=== PATIENT | female | born 1970 | race Caucasian/White ===

== ENCOUNTER 2018-08-18 10:12 | Emergency (ER) | payer OTHER ==
[~2018-08-18] VITALS: Ht 170.2 cm; Wt 59.0 kg
--- OUTSIDE RECORDS SUMMARY | 2018-08-18 10:14 | XMS REPORT | Clinical Summary ---
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 Pseudoephedrine Other (See 01/23/2018 Comments) Medications End Date Status Medication Sig Dispensed Refills Start Date 02/22/2018 hydroCHLOROthiazide Take 1 tablet 30 tablet 0 (HYDRODIURIL) 25 MG (25 mg total) 8 tablet by mouth daily for 30 days. 02/22/2018 hydroCHLOROthiazide Take 1 tablet 30 tablet 0 (HYDRODIURIL) 25 MG (25 mg total) 8 tablet by mouth daily for 30 days. Active Problems Not on file Encounters Care Team Description Date Type Specialty Pankaj Cote MD Dizziness (Primary Dx); Essential hypertension; Blurry vision, left eye 01/23/2018 Emergency Emergency Medicine after 08/17/2017 Social History Date Tobacco Use Types Packs/Day Years Used Quit: 2010 Former Smoker 15 Smokeless Tobacco: Never Used Alcohol Use Drinks/Week oz/Week Comments Yes 2 Glasses of 1.2 drinks 3 times a week wine Sex Assigned at Date Recorded Not on file Industry Job Start Date Occupation Not on file Not on file Not on file Travel End Travel History Travel Start No recent travel history available. Last Filed Vital Signs Time Taken Vital Sign Reading 01/23/2018 8:37 PM CDT Blood Pressure 144/87 01/23/2018 8:37 PM CDT Pulse 81 01/23/2018 8:37 PM CDT Temperature 36.7 C (98 F) 01/23/2018 8:37 PM CDT Respiratory Rate 18 01/23/2018 8:37 PM CDT Oxygen Saturation 97% - Inhaled Oxygen - Concentration 01/23/2018 2:58 PM CDT Weight 65.6 kg (144 lb 11.2 oz) 01/23/2018 2:58 PM CDT Height 172.7 cm (5' 8") 01/23/2018 2:58 PM CDT Body Mass Index 22 Plan of Treatment Health Maintenance Due Date Last Done Comments MMR VACCINES (1 of - 1973 Standard series) VARICELLA VACCINES (1 of 1985 2 - 2-dose adolescent series) CERVICAL CANCER SCREENING 1993 INFLUENZA VACCINE 04/18/2018 HEPATITIS B VACCINES Aged Out No longer eligible based on patient's age to complete this topic IPV VACCINES Aged Out No longer eligible based on patient's age to complete this topic MENINGOCOCCAL VACCINE Aged Out No longer eligible based on patient's age to complete this topic Procedures Comments Procedure Name Priority Date/Time Associated Diagnosis ECG ED PRELIMINARY Routine 01/23/2018 INTERPRETATION 6:28 PM CDT GENERAL Routine 01/23/2018 6:28 PM CDT URINALYSIS SCREEN AND STAT 01/23/2018 MICROSCOPY, WITH REFLEX 6:06 PM CDT TO CULTURE HCG QUALITATIVE, URINE STAT 01/23/2018 SCREEN 6:06 PM CDT GRAM STAIN STAT 01/23/2018 6:06 PM CDT URINE CULTURE STAT 01/23/2018 6:06 PM CDT MRI BRAIN WO CONTRAST STAT 01/23/2018 5:[address] HEAD WO CONTRAST STAT 01/23/2018 3:42 PM CDT ZZESTIMATED GFR STAT 01/23/2018 3:30 PM CDT B NATRIURETIC PEPTIDE STAT 01/23/2018 3:30 PM CDT TROPONIN STAT 01/23/2018 3:30 PM CDT COMPREHENSIVE METABOLIC STAT 01/23/2018 PANEL 3:30 PM CDT HC COMPLETE BLD COUNT STAT 01/23/2018 W/AUTO DIFF 3:30 PM CDT ECG 12-LEAD STAT 01/23/2018 3:07 PM CDT after 08/17/2017 Results * ECG ED Preliminary Interpretation - NOT AN ORDER (01/23/2018 6:28 PM CDT) Narrative Performed At Pankaj Cote MD 01/23/2018 11:29 PM ECG ED Preliminary Interpretation - Not an Order Performed by: PANKAJ COTE Authorized by: PANKAJ COTE ECG reviewed by ED Physician in the absence of a customer solutions supervisor: yes Interpretation: Interpretation: normal Rate: ECG rate:79 ECG rate assessment: normal Rhythm: Rhythm: sinus rhythm Ectopy: Ectopy: none QRS: QRS axis:Normal QRS intervals:Normal Conduction: Conduction: normal ST segments: ST segments:Normal T waves: T waves: normal * GENERAL (01/23/2018 6:28 PM CDT) Narrative Performed At Pankaj Cote MD 01/23/2018 11:29 PM Left Eye Ultrasound Performed by: PANKAJ COTE Authorized by: PANKAJ COTE Consent: Consent obtained:Verbal Consent given by:Patient Alternatives discussed:No treatment Indications: Indications:Blurry vision Anesthesia (see MAR for exact dosages): Anesthesia method:None Post-procedure details: Patient tolerance of procedure:Tolerated well, no immediate complications Comments: Ultrasound of the left eye noted to be normal with no retinal detachment or vitreous hemorrhage. * Urinalysis screen and microscopy, with reflex to culture (01/23/2018 6:06 PM CDT) Specimen site Clean catch [facility] AND [facility]OMIC MEDICINE Color, UA Straw [facility] AND GENOMIC MEDICINE Appearance, UA Slightly-Cloudy [facility] AND GENOMIC MEDICINE Specific gravity, UA 1.002 1.001 - 1.035 [facility] AND GENOMIC MEDICINE pH, UA 5.0 5.0 - 8.5 [facility] AND [facility]OMIC MEDICINE Protein, UA Negative Negative [facility] AND [facility]OMIC MEDICINE Glucose, UA Negative Negative [facility] AND GENOMIC MEDICINE Ketones, UA Trace (A) Negative [facility] AND GENOMIC MEDICINE Bilirubin, UA Negative Negative [facility] AND GENOMIC MEDICINE Blood, UA Negative Negative [facility]Y AND GENOMIC MEDICINE Nitrite, UA Negative Negative [facility]Y AND GENOMIC MEDICINE Urobilinogen, UA Negative <2.0 [facility] AND GENOMIC MEDICINE Leukocyte esterase, UA Small (A) Negative [facility] AND GENOMIC MEDICINE Epithelial cells, UA Many /HPF [facility] AND GENOMIC MEDICINE WBC, UA 8 (H) 0 - 5 /HPF [facility] AND GENOMIC MEDICINE RBC, UA 2 0 - 5 /HPF [facility] AND GENOMIC MEDICINE Bacteria, UA Many (A) None seen [facility] AND GENOMIC MEDICINE Yeast, UA None seen [facility] AND GENOMIC MEDICINE Yeast with pseudohyphae, None seen [facility] UA PATHOLOGY AND GENOMIC MEDICINE Specimen Urine Performing Organization Address City/State/Zipcode Phone Number [facility] [address] [place] [address] PATHOLOGY AND GENOMIC MEDICINE * hCG qualitative, urine screen (01/23/2018 6:06 PM CDT) hCG qualitative, urine Negative Negative [facility] Comment: PATHOLOGY AND The manufacturers stated GENOMIC MEDICINE sensitivity of HcG test for serum is >/=10 mIU/ml and urine is >/=20mIU/ml. Specimen Urine Performing Organization Address City/[facility]/Zipcode Phone Number [facility] [place] [phone] PATHOLOGY AND GENOMIC MEDICINE * Gram stain (01/23/2018 6:06 PM CDT) Gram stain result No WBC's [facility] DEPARTMENT OF Moderate Gram positive rods PATHOLOGY AND Comment: GENOMIC MEDICINE Specimen Information Specimen Source: Urine Specimen Site: Clean catch Specimen Urine Performing Organization Address City/State/Zipcode Phone Number [facility] DEPARTMENT OF [address] [place] [phone] PATHOLOGY AND GENOMIC MEDICINE * Urine culture (01/23/2018 6:06 PM CDT) Urine culture isolate Mixed Gram positive miya [facility] DEPARTMENT OF 10-2 cfu/ml PATHOLOGY AND (A) GENOMIC MEDICINE Comment: Specimen Information Specimen Source: Urine Specimen Site: Clean catch Specimen Urine Performing Organization Address City/[facility]/Zipcode Phone Number [facility] DEPARTMENT OF [address] [place] [phone] PATHOLOGY AND GENOMIC MEDICINE * MRI Brain Wo Contrast (01/23/2018 5:55 PM CDT) Narrative Performed At [facility] EXAMINATION: MRI BRAIN WO CONTRAST COMPARISON: None CLINICAL HISTORY abnormal CT scandizziness. TECHNIQUE: Multiplanar multisequence examination was performed without contrast. FINDINGS: There is no definite diffusion restriction to suggest acute ischemia. The ventricles and subarachnoid spaces are within normal limits. There is no focal cortical or subcortical infarction. There is no acute hemorrhage or hemosiderin deposition. There are no extra-axial lesions. IMPRESSION: Unremarkable examination. No acute intracranial abnormalities. [facility]-[id number] Procedure Note Interface, Radiology Results Incoming - 01/23/2018 6:01 PM CDT EXAMINATION: MRI BRAIN WO CONTRAST COMPARISON: None CLINICAL HISTORY abnormal CT scan dizziness. TECHNIQUE: Multiplanar multisequence examination was performed without contrast. FINDINGS: There is no definite diffusion restriction to suggest acute ischemia. The ventricles and subarachnoid spaces are within normal limits. There is no focal cortical or subcortical infarction. There is no acute hemorrhage or hemosiderin deposition. There are no extra-axial lesions. IMPRESSION: Unremarkable examination. No acute intracranial abnormalities. [facility]-[id number] Performing Organization Address City/State/Zipcode Phone Number [facility] [address] [place] [address] * CT Head Wo Contrast (01/23/2018 3:42 PM CDT) Narrative Performed At Examination: CT HEAD WO CONTRAST [facility] Clinical History: dizziness blurred vision Comparison: NONE Technique: Multiple axial CT images of the brain are obtained without the use of intravenous contrast. CT scans are performed using radiation dose reduction techniques. Technical factors are evaluated and adjusted to ensure appropriate moderation of exposure. Automated dose management technology is applied to adjust radiation dose to minimize exposure, while achieving a diagnostic image. FINDINGS: The visualized paranasal sinuses are clear. The mastoid air cells are well aerated. The globes and optic nerves are unremarkable. The ventricles are symmetrical. There is no mass effect or any midline shift. There is no evidence of any extra-axial fluid collection. There is no parenchymal hemorrhage or mass lesion. There is maintenance of the win-white junction.There is a focal area of decreased attenuation seen within the right occipital lobe. This may represent an area of infarction. For further evaluation, MRI imaging of the brain is recommended. The posterior fossa does not demonstrate any masses. IMPRESSION: 1. There is focal area of decreased attenuation seen within the right occipital lobe which may represent a infarct. For further evaluation, MRI imaging of the brain is recommended. 2. There are no parenchymal masses present. 3. There is no evidence of any hemorrhage nor any extra-axial fluid collection. 4. Findings were discussed with Dr. Barreto at 01/23/2018 3:49 PM who verbalized understanding. [id number] Procedure Note Interface, Radiology Results Incoming - 01/23/2018 3:53 PM CDT Examination: CT HEAD WO CONTRAST Clinical History: dizziness blurred vision Comparison: NONE Technique: Multiple axial CT images of the brain are obtained without the use of intravenous contrast. CT scans are performed using radiation dose reduction techniques. Technical factors are evaluated and adjusted to ensure appropriate moderation of exposure. Automated dose management technology is applied to adjust radiation dose to minimize exposure, while achieving a diagnostic image. FINDINGS: The visualized paranasal sinuses are clear. The mastoid air cells are well aerated. The globes and optic nerves are unremarkable. The ventricles are symmetrical. There is no mass effect or any midline shift. There is no evidence of any extra-axial fluid collection. There is no parenchymal hemorrhage or mass lesion. There is maintenance of the win-white junction. There is a focal area of decreased attenuation seen within the right occipital lobe. This may represent an area of infarction. For further evaluation, MRI imaging of the brain is recommended. The posterior fossa does not demonstrate any masses. IMPRESSION: 1. There is focal area of decreased attenuation seen within the right occipital lobe which may represent a infarct. For further evaluation, MRI imaging of the brain is recommended. 2. There are no parenchymal masses present. 3. There is no evidence of any hemorrhage nor any extra-axial fluid collection. 4. Findings were discussed with Dr. Barreto at 01/23/2018 3:49 PM who verbalized understanding. [id number] Performing Organization Address City/State/Zipcode Phone Number [facility] [address] [place] [address] * Estimated GFR (01/23/2018 3:30 PM CDT) GFR Non Af Amer >90 mL/min/1.73 m2 [facility]Y AND GENOMIC MEDICINE GFR Af Amer >90 mL/min/1.73 m2 [facility] OF Comment: PATHOLOGY AND Chronic kidney disease: <60 GENOMIC MEDICINE mL/min/1.73m2 Kidney failure: <15 mL/min/1.73m2 The estimated GFR is calculated from the IDMS-traceable Modification of Diet in Renal Disease Equation. The accuracy of the calculation is poor when the creatinine is normal. Calculated values >90 mL/min/1.73m2 are not reported. This equation has not been validated in children (<18 years), women, the elderly (>70 years), or ethnic groups other than Caucasians and Americans. Specimen Plasma specimen Performing Organization Address City/State/Zipcode Phone Number [address] [place] [address] PATHOLOGY AND [facility] * Troponin (01/23/2018 3:30 PM CDT) Troponin <0.01 0.00 - 0.60 ng/mL [facility] Comment: PATHOLOGY AND 0.11 - 1.49 GENOMIC MEDICINE ng/mlMay indicate increased risk of acute coronary syndrome. >=1.5 ng/ml Consistent with acute myocardial infarction. The diagnostic value of a single normal or non-diagnostic result is questionable.Serial samples at 2-6 hour intervals are required to rule out acute myocardial injury. Specimen Plasma specimen Performing Organization Address City/[facility] Phone Number [address] [place] [phone] PATHOLOGY AND [employer] * CBC with platelet and differential (01/23/2018 3:30 PM CDT) WBC 6.6 4.2 - 11.0 k/uL [facility]Y AND GENOMIC MEDICINE RBC 4.75 4.04 - 5.86 m/uL [facility]OLOGY AND GENOMIC MEDICINE HGB 14.4 11.5 - 15.3 g/dL [facility]OLOGY AND GENOMIC MEDICINE HCT 43.6 34.0 - 45.0 % [facility]OLOGY AND GENOMIC MEDICINE MCV 91.8 80.0 - 98.0 fL [facility]OLOGY AND GENOMIC MEDICINE MCH 30.3 27.0 - 34.0 pg [facility]OLOGY AND GENOMIC MEDICINE MCHC 33.0 31.5 - 36.5 g/dL [facility]OLOGY AND GENOMIC MEDICINE RDW - SD 40.0 37.0 - 51.0 fL [facility]OLOGY AND GENOMIC MEDICINE MPV 9.0 7.4 - 10.4 fL [facility]Y AND GENOMIC MEDICINE Platelet count 329 150 - 400 k/uL [facility]OLOGY AND GENOMIC MEDICINE Nucleated RBC 0.00 /100 WBC [facility]OLOGY AND GENOMIC MEDICINE Neutrophils 64.1 36.0 - 66.0 % [facility]OLOGY AND GENOMIC MEDICINE Lymphocytes 26.1 24.0 - 44.0 % [facility]OLOGY AND GENOMIC MEDICINE Monocytes 6.8 (H) 0.0 - 6.0 % [facility]OLOGY AND GENOMIC MEDICINE Eosinophils 2.3 0.0 - 6.0 % [facility] PATHOLOGY AND GENOMIC MEDICINE Basophils 0.5 0.0 - 1.2 % [facility]OLOGY AND GENOMIC MEDICINE Immature granulocytes 0.2 0.0 - 1.0 % [facility] PATHOLOGY AND GENOMIC MEDICINE Specimen Blood Performing Organization Address City/State/[place] [address] PATHOLOGY AND [facility] * B natriuretic peptide (01/23/2018 3:30 PM CDT) BNP 20 0 - 100 pg/mL [facility] PATHOLOGY AND GENOMIC MEDICINE Specimen Blood Performing Organization Address City/[facility]/[place] [address] PATHOLOGY AND [facility] * Comprehensive metabolic panel (01/23/2018 3:30 PM CDT) Sodium 139 135 - 150 mEq/L [facility]OLOGY AND GENOMIC MEDICINE Potassium 4.4 3.5 - 5.0 mEq/L [facility] PATHOLOGY AND GENOMIC MEDICINE Chloride 101 100 - 109 mEq/L [facility]Y AND GENOMIC MEDICINE CO2 27 24 - 32 mmol/L [facility] OF PATHOLOGY AND GENOMIC MEDICINE Anion gap 11 7 - 15 mEq/L [facility] Comment: PATHOLOGY AND Starting from December [facility] , anion gap calculation no longer incorporates potassium. Please note the change. BUN 6 (L) 7 - 18 mg/dL [facility]OLOGY AND GENOMIC MEDICINE Creatinine 0.7 (L) 0.8 - 1.5 mg/dL [facility]OLOGY AND GENOMIC MEDICINE Glucose 90 65 - 100 mg/dL [facility] PATHOLOGY AND GENOMIC MEDICINE Calcium 9.6 8.6 - 10.7 mg/dL [facility]OLOGY AND GENOMIC MEDICINE Protein 8.1 6.3 - 8.2 g/dL [facility]OLOGY AND GENOMIC MEDICINE Albumin 4.0 3.2 - 5.0 g/dL [facility]OLOGY AND GENOMIC MEDICINE A/G ratio 1.0 0.7 - 3.8 [facility]OLOGY AND GENOMIC MEDICINE Alkaline phosphatase 57 30 - 120 U/L [facility] AND [facility]OMIC MEDICINE AST 33 15 - 37 U/L [facility] PATHOLOGY AND GENOMIC MEDICINE ALT 36 30 - 65 U/L [facility]OLOGY AND GENOMIC MEDICINE Total bilirubin 0.5 0.2 - 1.2 mg/dL [facility]OLOGY AND GENOMIC MEDICINE Specimen Plasma specimen Performing Organization Address City/State/Zipcode Phone Number [facility] [place] [address] [place] [address] PATHOLOGY AND GENOMIC MEDICINE * ECG 12 lead (01/23/2018 3:07 PM CDT) Ventricular rate 79 [facility] Atrial rate 79 [facility] ND interval 150 [facility] QRSD interval 74 [facility] QT interval 382 [facility] QTC interval 438 [facility] P axis 1 72 [facility] QRS axis 1 82 [facility] T wave axis 73 [facility] EKG impression Normal sinus rhythm with sinus [facility] arrhythmia-Normal ECG-No previous ECGs available- Performing Organization Address City/State/[facility] Phone Number [facility] [employer] [address] [place] [address] after 08/17/2017 Insurance Payer Benefit Subscriber ID Type Phone Address Plan / Group [facility]i [facility] xxxxxxxxx O [facility] Advance Directives Patient has advance care planning documents on file. For more information, yoni shirley contact: Vince Cox [address] [place] [address]
[2018-08-18 10:44] LABS: BASOPHILS % 0.5 % (0.0-1.0); EOSINOPHILS # (AUTO) 0.1 (0.0-0.4); EOSINOPHILS % 0.8 % (0.0-6.0); HEMATOCRIT 43.3 % (34.2-44.1); HEMOGLOBIN 15.4 g/dL (12.0-16.0); LYMPHOCYTES # (AUTO) 1.8 (1.0-3.2); LYMPHOCYTES % 24.2 % (18.0-39.1); MEAN CORPUSCULAR HEMOGLOBIN 31.8 pg (28-32); MEAN CORPUSCULAR HGB CONC 35.6 g/dL (31-35); MEAN CORPUSCULAR VOLUME 89.3 fL (81-99); MONOCYTES # (AUTO) 0.6 (0.2-0.8); MONOCYTES % 8.3 % (4.4-11.3); NEUTROPHILS % 65.8 % (38.7-80.0); PLATELET COUNT 344 x10e3/uL (140-360); RED BLOOD COUNT 4.85 x10e6/uL (3.6-5.1); RED CELL DISTRIBUTION WIDTH 11.6 % (11.7-14.4)
[2018-08-18 11:00] LABS: AMPHETAMINES SCREEN,URINE NEGATIVE (NEGATIVE); BENZODIAZEPINES SCREEN,URINE NEGATIVE (NEGATIVE); PHENCYCLIDINE SCREEN,URINE NEGATIVE (NEGATIVE); PREGNANCY TEST, URINE NEGATIVE (NEGATIVE)
[2018-08-18 11:03] LABS: ALBUMIN 3.9 g/dL (3.5-5.0); ANION GAP 16.7 mmol/L (8-16); CALCIUM 9.9 mg/dL (8.4-10.2); CREATININE, SERUM 1.48 mg/dL (0.57-1.11)
[2018-08-18 11:05] LABS: POTASSIUM 2.7 mmol/L (3.5-5.1)
[2018-08-18] MEDS ORDERED: POTASSIUM CHLORIDE 20 MEQ TAB CR PO NR (11:07)
[2018-08-18] MEDS ORDERED: SODIUM CHLORIDE 0.9% 1000ML 1,000 ML IV SCH (11:15)
[2018-08-18] MEDS ORDERED: POTASSIUM CHLORIDE 20MEQ/100ML 100 ML IV ONE (11:15)
[2018-08-18] MEDS ORDERED: LORAZEPAM INJ 2 MG/ML VIAL IV NR (11:15)
--- NOTE | 2018-08-18 11:35 | Diagnostic Imaging Report ---
EXAMINATION: CHEST SINGLE (PORTABLE) INDICATION: Shortness of breath. ^[id number] ^1106 ^SOB COMPARISON: None FINDINGS: AP view TUBES and LINES: None. LUNGS: Lungs are well inflated. Lungs are clear. There is no evidence of pneumonia or pulmonary edema. PLEURA: No pleural effusion or pneumothorax. HEART AND MEDIASTINUM: The cardiomediastinal silhouette is unremarkable. BONES AND SOFT TISSUES: No acute osseous lesion. Soft tissues are unremarkable. UPPER ABDOMEN: No free air under the diaphragm. IMPRESSION: No acute thoracic abnormality. Signed by: Dr. Mauor Johnson MD on 08/18/2018 11:31 AM
--- NOTE | 2018-08-18 11:50 | Diagnostic Imaging Report ---
Examination: CT head without contrast Clinical Indication: Weakness. Technique: Transaxial noncontrast images from the skull base through the vertex were obtained. Sagittal and coronal reformatted images were done. Dose modulation, iterative reconstruction, and/or weight based adjustment of the mA/kV was utilized to reduce the radiation dose to as low as reasonably achievable. Comparison: None. Findings: Scalp: No abnormalities. Bones: Intact. No fractures. No blastic or lytic lesions. Brain sulci: Appropriate for patient's age. Ventricles: Normal in size and configuration. No hydrocephalus. Extra-axial space: No abnormalities. Parenchyma: No abnormal densities. No masses, hemorrhage, or acute or chronic cortical based vascular insults. Suprasellar region: No abnormalities. Craniocervical junction: The foramen magnum is patent. No Chiari one malformation. Impression: No intracranial abnormality. Signed by: Dr. Kiesha Dupree M.D. on 08/18/2018 11:47 AM
[2018-08-18] MEDS ORDERED: POTASSIUM CHLORIDE 20 MEQ TAB CR PO ONE (14:30)
[2018-08-18 15:03] VITALS: BP 101/67
== END 2018-08-18 15:05 | disposition home or self-care (01) ==
LOC: ER 10:12
DX: R06.09 Other forms of dyspnea (principal); E87.6 Hypokalemia; E87.1 Hypo-osmolality and hyponatremia; F41.1 Generalized anxiety disorder; K52.9 Noninfective gastroenteritis and colitis, unspecified; I10 Essential (primary) hypertension; G93.5 Compression of brain; Z86.73 Personal history of transient ischemic attack (TIA), and cerebral infarction without residual deficits
CPT/HCPCS: 36415; 70450; 71045; 80053; 80307; 81025; 85025; 99284; J3480; J7030